=== PATIENT | male | born 1950 | race Caucasian/White ===

== ENCOUNTER 2024-08-21 12:06 | Inpatient (IN) | payer OTHER, MEDICARE ==
[~2024-08-21] VITALS: Ht 170.2 cm; Wt 76.5 kg
[2024-08-21] MEDS ORDERED: Metoprolol Tartrate 1 MG/ML 5 ML VIAL IV PRN (12:40)
[2024-08-21 12:56] LABS: BASOPHILS ABSOLUTE AUTO 0.03 K/mm3 (0.00-0.23); BASOPHILS PERCENT AUTO 0 % (0-2); EOSINOPHILS ABSOLUTE AUTO 0.03 K/mm3 (0.00-0.68); EOSINOPHILS PERCENT AUTO 0 % (0-6); Hematocrit 36.3 % (33.0-53.0); Hemoglobin 11.4 g/dL (11.5-17.5); IMMATURE GRAN ABSOLUTE AUTO 0.04 K/mm3 (0.00-0.10); IMMATURE GRAN PERCENT AUTO 1 % (0-1); LYMPHOCYTES ABSOLUTE AUTO 2.09 K/mm3 (0.84-5.20); LYMPHOCYTES PERCENT AUTO 25 % (21-46); MONOCYTES ABSOLUTE AUTO 0.76 K/mm3 (0.16-1.47); MONOCYTES PERCENT AUTO 9 % (4-13); Mean Corpuscular HGB 28.6 pg (26.0-34.0); Mean Corpuscular HGB Conc 31.4 g/dL (31.5-36.5); Mean Corpuscular Volume 91 fL (80-100); Mean Platelet Volume 9.2 fL (9.1-12.4); NEUTROPHILS ABSOLUTE AUTO 5.58 K/mm3 (1.96-9.15); NEUTROPHILS PERCENT AUTO 65 % (41-73); Platelet Count 426 K/mm3 (150-400); RDW Coefficient Variation 14.6 % (11.7-14.2); RDW Standard Deviation 49.1 fL (35.1-46.3); Red Blood Cell Count 3.98 M/mm3 (3.80-5.90); White Blood Cell Count 8.53 K/mm3 (4.00-11.30)
[2024-08-21 13:05] LABS: Base Excess Venous 7.2 mmol/L; Bicarbonate Venous 29.4 mmol/L (24.0-30.0); PCO2 Venous 52.8 mmHg (38-42); pH Blood Venous 7.39 (7.34-7.37)
[2024-08-21 13:29] LABS: Albumin/Globulin Ratio 0.4 (0.8-1.8); Bilirubin, Total 0.4 mg/dL (0.1-1.0); Bun/Creatinine Ratio 14.9 (12.0-20.0); Calcium, Blood 8.6 mg/dL (8.5-10.1); Creatinine, Blood 0.67 mg/dL (0.60-1.20); Globulin, Blood 5.2 g/dL (2.2-4.0); Potassium, Blood 4.7 mmol/L (3.5-5.5); Total Protein, Blood 7.2 g/dL (6.4-8.2)
[2024-08-21] MEDS ORDERED: LOSARTAN POTASS25 M2 PO (13:36)
[2024-08-21] MEDS ORDERED: METF500 PO (13:37)
[2024-08-21] MEDS ORDERED: METO50ER PO (13:37)
[2024-08-21] MEDS ORDERED: XARELTO20 M1 PO (13:38)
[2024-08-21] MEDS ORDERED: TAMSULOSIN HCL0.4 M1 PO (13:38)
[2024-08-21] MEDS ORDERED: Crestor40 MG PO (13:38)
[2024-08-21] MEDS ORDERED: FUROSEMIDE40 MG PO (13:39)
[2024-08-21] MEDS ORDERED: FINA5 PO (13:39)
[2024-08-21] MEDS ORDERED: DAPAGLIFLOZIN5 MG PO (13:39)
[2024-08-21] MEDS ORDERED: BASAGLAR K100 UNIT/1 SC (13:40)
[2024-08-21] MEDS ORDERED: GUAI600T33 PO (13:40)
[2024-08-21] MEDS ORDERED: Diltiazem HCl 5 MG / ML 5ML Vial IV ONE (14:05)
[2024-08-21] MEDS ORDERED: FLU VACC TS2024-25(6MOS UP)/PF 45 MCG/0.5 ML SYRINGE IM SCH (15:30)
[2024-08-21] MEDS ORDERED: Azithromycin 500 MG in NS 250 ML IV SCH (16:00)
[2024-08-21] MEDS ORDERED: CefTRIAXone Sodium 1,000 MG in NS 100 ML IV SCH (16:00)
[2024-08-21] MEDS ORDERED: Insulin Regular 100 UNIT/ML 10ML Vial SC SCH (16:30)
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
[2024-08-21 16:59] VITALS: BP 122/75
[2024-08-21 17:23] VITALS: BP 135/78
[2024-08-21 17:35] VITALS: BP 143/91
[2024-08-21] MEDS ORDERED: Furosemide 10 MG / ML 2ML Vial IV SCH (18:00)
[2024-08-21] MEDS ORDERED: Enoxaparin 80 MG/0.8 ML SYR SC SCH (18:00)
[2024-08-21 20:13] VITALS: BP 108/77
[2024-08-21] MEDS ORDERED: Metoprolol Succinate 50 MG TABCR PO SCH (21:00)
[2024-08-21] MEDS ORDERED: Insulin Human Lispro 100 Units/ML 3ML Syringe SC SCH (21:00)
[2024-08-21] MEDS ORDERED: Insulin Glargine-Yfgn 100 Unit/mL 3 ML SYR SC SCH (21:00)
[2024-08-21] MEDS ORDERED: GuaiFENesin 600 MG TabCR PO SCH (21:00)
[2024-08-21] MEDS ORDERED: Lactobacil 2-S.Thermo-Bifido 1 1 Cap PO SCH (21:00)
[2024-08-21 22:02] VITALS: BP 115/84
[2024-08-21 23:00] VITALS: BP 121/66
[2024-08-22] VITALS (11 sets, daily range): BP systolic 117–138; BP diastolic 68–104
[2024-08-22 04:29] LABS: BASOPHILS ABSOLUTE AUTO 0.03 K/mm3 (0.00-0.23); BASOPHILS PERCENT AUTO 0 % (0-2); EOSINOPHILS ABSOLUTE AUTO 0.09 K/mm3 (0.00-0.68); EOSINOPHILS PERCENT AUTO 1 % (0-6); Hematocrit 35.6 % (37.0-53.0); Hemoglobin 11.3 g/dL (13.5-17.5); IMMATURE GRAN ABSOLUTE AUTO 0.02 K/mm3 (0.00-0.10); IMMATURE GRAN PERCENT AUTO 0 % (0-1); LYMPHOCYTES ABSOLUTE AUTO 2.11 K/mm3 (0.84-5.20); LYMPHOCYTES PERCENT AUTO 25 % (21-46); MONOCYTES PERCENT AUTO 10 % (4-13); Mean Corpuscular HGB 28.4 pg (26.0-34.0); Mean Corpuscular HGB Conc 31.7 g/dL (31.5-36.5); Mean Corpuscular Volume 89 fL (80-100); Mean Platelet Volume 8.9 fL (9.1-12.4); NEUTROPHILS ABSOLUTE AUTO 5.39 K/mm3 (1.96-9.15); NEUTROPHILS PERCENT AUTO 64 % (41-73); Platelet Count 432 K/mm3 (150-400); RDW Coefficient Variation 14.6 % (11.7-14.2); RDW Standard Deviation 47.6 fL (35.1-46.3); Red Blood Cell Count 3.98 M/mm3 (4.30-5.90); White Blood Cell Count 8.44 K/mm3 (4.00-11.30)
[2024-08-22 04:50] LABS: Albumin/Globulin Ratio 0.4 (0.8-1.8); Bilirubin, Total 0.3 mg/dL (0.1-1.0); Bun/Creatinine Ratio 15.3 (12.0-20.0); Calcium, Blood 8.7 mg/dL (8.5-10.1); Creatinine, Blood 0.59 mg/dL (0.60-1.20); Globulin, Blood 5.2 g/dL (2.2-4.0); Total Protein, Blood 7.2 g/dL (6.4-8.2)
--- NOTE | 2024-08-22 05:16 | NUR ---
SHIFT SUMMARY THIS RN ASSUMED CARE OF PATIENT AT 1900. PT A&O X4. ABLE TO MAKE NEEDS KNOWN. GETTING TO BSC WITH SBA/IND TO VOID. PT NEEDING 2-4L VIA NC TO MAINTAIN SPO2. ENCOURAGING DEEP BREATHING AND COUGHING. WET/COARSE LS T/O. BP STABLE. CONTINUES TO BE ON CARDIZEM GTT. TITRATING PRN. CURRENTLY AT 10MG/HR. AFIB WITH HR AVERAGING 100'S CURRENTLY. DENIES CHEST PAIN/PRESSURE. REPORTS PAIN IN BLE. NOTED TO BE RED AND SWOLLEN. AFEBRILE. THIS RN SPOKE TO PATIENT REGARDING HOME SITUATION AND DEMENTED . CARE MANAGEMENT CONSULT PLACED. BED IN LOWEST POSITION AND CALL LIGHT WITHIN REACH. THIS RN WILL REPORT TO ONCOMING DAYSHIFT RN.
--- NOTE | 2024-08-22 11:53 | NUR ---
Spiritual care visit conducted. Patient is sitting on a chair and alert. He tells me about the poor conditions of his heart and lungs and his goal to see what an oncologist could do for his cancer if anything. He tells me about his souse at home who has dementia and the lack of support from any other family or friends. He shares his possible interest in making a commitment to God and being baptized but when questioned further he stated that he would think some more about those ambrose issues. 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 He welcomed prayer and showed signs of being encouraged by both the conversation and the prayer. I will continue to remain available to patient and family.
--- NOTE | 2024-08-22 12:33 | NUR ---
Dr Hicks rounding on the patient at this time.
[2024-08-22] MEDS ORDERED: Metoprolol Tartrate 25 MG Tab PO PRN (12:35)
--- NOTE | 2024-08-22 13:21 | NUR ---
Pt states that he is having thoughts of harming himself, and that he has had attempts recently just after having the cancer diagnosis, but he does not want to say how the attempts were made.
[2024-08-22] MEDS ORDERED: Gabapentin 100 MG Cap PO SCH (14:00)
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
--- NOTE | 2024-08-22 15:44 | NUR ---
Call to Dr. Hicks re oncology consultation. Received orders for imaging, to be done before consultation is requested. Pt worked with physical therpist Geoff, and has had significant coughing spells, tripoding in the bed and heart rate remaining 115-129 bpm atrial fibrillation. This information relayed to the attending MD in a following conversation.
--- NOTE | 2024-08-22 16:22 | NUR ---
"Spiritual Care Consult | ordered by Dr. Hicks In [facility] this visit could been better addressed at a different time, but the Pt. welcomed my visit at first. Facilitated a life review and began to establish rapport, when the Pts. nurses came in to move the Pt. to a different room. Once the Pt. got settled in his new room, the Pts. demeanor seems to have changed. Resumed a life review but the Pts. responses displayed evidence of being annoyed and distracted. This gas technician offered to return in the morning, and the Pt. agreed that would be best and verbalized gratitude for the spiritual care visit."
--- NOTE | 2024-08-22 18:15 | NUR ---
Pt back from CT, ongoing increased work of breathing and heart rate 130-140s, steadily both worsening this afternoon. Audible coarse breathing with RR 24/min. 4 L/min of oxygen, spo2 90-92%. Pt is needing to sit up in order to breathe comfortably. Cardizem gtt restarted, per orders. IV lasix given per scheduled order.
--- NOTE | 2024-08-22 18:35 | NUR ---
SHIFT SUMMARY NEURO: PT REMAINED A/OX4 CARDIAC: ISSUES WITH HR T/O THE DAY, HR SUSTAINING 120'S-140'S, DR NOTIFIED, SEE NEW ORDERS TO RESUME DILTIAZEM DRIP. EDEMA IN BLE INCREASED SLIGHTLY FROM YESTERDAY. RESPIRATORY: WOB OF BREATHING INCREASED T/O DAY, LUNG SOUNDS MORE COARSE THAN YESTERDAY. PT ORTHOPNIC AND HAD DIFFICULTY LAYING FLAT FOR CT TODAY. SATS DROPPING INTO HIGH 80'S. CURRENTLY ON 4L NC. PLAN IS FOR THORACENTESIS TOMORROW. PSYCHSOC: PT REPORTED SUICIDAL IDEATION TODAY. DOES NOT CURRENTLY HAVE A PLAN TO CARRY OUT, BUT HAS MADE PLANS IN THE PAST AND MADE MULTIPLE ATTEMPTS IN THE PAST. SUGGESTED THAT HE INTENDS TO MAKE A PLAN SOON HE LEAVES THE HOSPITAL. PRECAUTIONS IN PLACE, PT MOVED TO [facility], SITTER IN PLACE WITH PT.
--- NOTE | 2024-08-22 19:45 | NUR ---
SI IDEATION PT STATES HE STILL FEELS SI BUT NOT HERE IN THE HOSPITAL. PT STATES HE DIDNT WANT TO BE ASKED ANY MORE QUESTIONS LONG TERM THROUGH THE ASSESSMENT.
[2024-08-22] MEDS ORDERED: Melatonin 5 MG Tablet PO PRN (21:05)
[2024-08-23] VITALS: BP 114/72
[2024-08-23 04:32] VITALS: BP 120/90
[2024-08-23 04:33] LABS: BASOPHILS ABSOLUTE AUTO 0.03 K/mm3 (0.00-0.23); BASOPHILS PERCENT AUTO 0 % (0-2); EOSINOPHILS ABSOLUTE AUTO 0.09 K/mm3 (0.00-0.68); EOSINOPHILS PERCENT AUTO 1 % (0-6); Hemoglobin 11.8 g/dL (13.5-17.5); IMMATURE GRAN ABSOLUTE AUTO 0.04 K/mm3 (0.00-0.10); IMMATURE GRAN PERCENT AUTO 0 % (0-1); LYMPHOCYTES ABSOLUTE AUTO 2.23 K/mm3 (0.84-5.20); LYMPHOCYTES PERCENT AUTO 23 % (21-46); MONOCYTES ABSOLUTE AUTO 0.83 K/mm3 (0.16-1.47); MONOCYTES PERCENT AUTO 8 % (4-13); Mean Corpuscular HGB 28.9 pg (26.0-34.0); Mean Corpuscular HGB Conc 31.9 g/dL (31.5-36.5); Mean Corpuscular Volume 91 fL (80-100); NEUTROPHILS ABSOLUTE AUTO 6.66 K/mm3 (1.96-9.15); NEUTROPHILS PERCENT AUTO 67 % (41-73); Platelet Count 419 K/mm3 (150-400); RDW Coefficient Variation 14.4 % (11.7-14.2); RDW Standard Deviation 47.7 fL (35.1-46.3); Red Blood Cell Count 4.09 M/mm3 (4.30-5.90); White Blood Cell Count 9.88 K/mm3 (4.00-11.30)
[2024-08-23 04:49] LABS: International Normalized Ratio 1.02; Prothrombin Time Results 10.9 Sec (9.7-11.5)
[2024-08-23 04:53] LABS: Albumin, Blood 1.9 g/dL (3.4-5.0); Albumin/Globulin Ratio 0.3 (0.8-1.8); Bilirubin, Total 0.3 mg/dL (0.1-1.0); Bun/Creatinine Ratio 18.3 (12.0-20.0); Creatinine, Blood 0.49 mg/dL (0.60-1.20); Globulin, Blood 5.5 g/dL (2.2-4.0); Potassium, Blood 3.9 mmol/L (3.5-5.5); Total Protein, Blood 7.4 g/dL (6.4-8.2)
--- NOTE | 2024-08-23 05:20 | NUR ---
SHIFT SUMMARY ASSUMED CARE OF PT AT 1900. PT IS A/OX4. HEART SOUNDS TACHY AND IRREGULAR. PT REMAINED ON DILT GTT T/O THE NOC TITRATED FROM 15 T0 5. TOLERATING WELL. PT REPORTS STILL FEELING SI IDEATION BUT HAS NO PLANS TO ACT ON IT. FACESHEET SENT TO ER FOR CONSULT. PT WAS A 1P SBA TO BATHROOM. PT SATURATIONS WERE 89-94% ON 7-9L NC. PT STATES SOB BETTER BUT ALSO THE SAME. PT EAGER TO GET THORCENTESIS TODAY.
--- NOTE | 2024-08-23 07:16 | NUR ---
Bedside report from TREMAYNE Shine. The pt is awake, sitting up in bed in tripod position, tachypneic and mildly dyspneic on 7 l/min of O2. States that he wants food. CBG 49; given orange juice and chocolate pudding at this time. Cardizem gtt infusing at 5 cc/hour, heart rate 112-120 bpm at rest. Jake Mitchell is in the room.
[2024-08-23 07:34] VITALS: BP 132/110
[2024-08-23] MEDS ORDERED: Protein Supplement 30 ML UD PO SCH (09:00)
[2024-08-23 09:40] VITALS: BP 138/109
--- NOTE | 2024-08-23 09:45 | NUR ---
0835 Pt down to imaging for thoracentesis and chest xray. 1.5 l fluid drained from the right thorax, pt tolerated it very well. He is requiring slightly less oxygen, 4 l/min at rest and states that he feels better. Audible rhonchi with breathing is decreased. Up to BSC after returning to the room. Psychiatrist Dr. Johnson came to the unit but did not see the patient; states that Dr. Katz will come and see the patient, unknown at what time. Heart rate continues to be 112-125 bpm, atrial fibrillation with cardizem gtt at 5 mg/hour.
[2024-08-23] MEDS ORDERED: Potassium Phosphate Dibasic 15 MM in Dextrose 5% 250 ML IV STA (10:45)
[2024-08-23] MEDS ORDERED: Digoxin 0.25 MG/ML 2ML Amp IV SCH (11:00)
[2024-08-23] MEDS ORDERED: Metoprolol Succinate 50 MG TABCR PO ONE (11:00)
[2024-08-23 12:30] VITALS: BP 120/62
[2024-08-23] MEDS ORDERED: QUEtiapine Fumarate 25 MG Tab PO PRN (15:40)
--- NOTE | 2024-08-23 17:05 | NUR ---
Pt. is awake and sitting up in his bed. 1:1 sittter is present. Pt. welcomes my visit. Facilitated an update of the plan of care. With theraputic listening assessed Pts. desire to want to see if the treatments would work. The Pt. displayed evidence of a more hopeful outcome than at our visit the previous day. Pryaed with the pt. Pt. verbalized gratitude for bothe the prayer and spiritual care visits. Pt. verbalized that he welcomes wet cleaner machine visits if he is still here on Monday.
--- NOTE | 2024-08-23 18:05 | NUR ---
SHIFT SUMMARY NEURO: A/OX4 T/O SHIFT. OBEYS COMMANDS, MAKES NEEDS KNOWN. PT HAD AN OUTBURST TODAY DUE TO BECOMING TOO WARM. HE WAS YELLING, CURSING, AND THROWING BLANKETS OFF. MULTIPLE STAFF ASSISTED IN REMOVING GOWN AND BLANKETS, COLD COMPRESS APPLIED TO FOREHEAD. PT EXPRESSED REGRET AND APOLOGIES, NERVOUS HE WAS IN TROUBLE. PT ALSO HAD AN EPISODE WHILE SLEEPING THIS AFTERNOON IN WHICH HE BEGAN TO SHAKE T/O, MUTTER UNCOMPREHENSIBLY. HE WAS DIFFICULT TO WAKE, BUT SAID HE HAD BEEN DREAMING OF DROWNING. PT STATES HE HAS NIGHTMARES AND WILL SOMETIMES SCREAM OUT. PSYCH: PT SEEN MY DR MOORE TODAY, SEE NOTE. 1:1 SITTER T/O SHIFT. CARDIO: BP STABLE, TACHYCARDIAC T/O SHIFT. SEE NEW MED ORDERS. RESPIRATORY: RR 20-28, O2 SATS HIGH 80'S TO HIGH 90'S. CURRENTLY ON 7L NC. LUNG SOUNDS VERY COURSE, WHEEZY. PT HAD THORACENTESIS TODAY, 1L OF FLUID REMOVED. PT TOLERATED PROCEDURE WELL. INTEGUMENTARY: BLE REMAINED UNCHANGED FROM YESTERDAY.
--- NOTE | 2024-08-23 18:36 | NUR ---
SEE ASSESSMENT AND PSYCH CONSULT NOTES
[2024-08-23 20:00] VITALS: BP 125/86
--- NOTE | 2024-08-23 20:26 | NUR ---
PT LAYING IN BED W/ HOB ELEVATED. ORTHOPNEA NOTED. RESPIRATORY SOUNDS IRREGULAR. DENIES PAIN AT PRESENT. SITTER AT BEDSIDE. O2 4L NC[address] ST ON MONITOR. DENIES CP. NON-PRODUCTIVE COUGH. REFUSED MUCINEX.
[2024-08-23] MEDS ORDERED: Metoprolol Succinate 50 MG TABCR PO SCH (21:00)
[2024-08-23] MEDS ORDERED: QUEtiapine Fumarate 50 MG TAB PO SCH (21:00)
[2024-08-24 00:52] VITALS: BP 116/72
[2024-08-24 04:13] VITALS: BP 118/77
--- NOTE | 2024-08-24 05:19 | NUR ---
PT A/O x4 W/ INTERMITTENT CONFUSION & AGITATION NOTED. WHEN O2 REMOVED, PT DESATS IMMEDIATELY. SR T/O SHIFT. DENIES PAIN. SITTING UP IN BED AT PRESENT, ALERT, CONVERSING W/ SITTER. EATING TURKEY SANDWICH, CHEDDAR CHEESE AND A GLASS OF WATER.
[2024-08-24 07:09] LABS: BASOPHILS ABSOLUTE AUTO 0.03 K/mm3 (0.00-0.23); BASOPHILS PERCENT AUTO 0 % (0-2); EOSINOPHILS PERCENT AUTO 1 % (0-6); Hematocrit 36.6 % (37.0-53.0); Hemoglobin 11.4 g/dL (13.5-17.5); IMMATURE GRAN ABSOLUTE AUTO 0.02 K/mm3 (0.00-0.10); IMMATURE GRAN PERCENT AUTO 0 % (0-1); LYMPHOCYTES ABSOLUTE AUTO 1.79 K/mm3 (0.84-5.20); LYMPHOCYTES PERCENT AUTO 20 % (21-46); MONOCYTES ABSOLUTE AUTO 0.75 K/mm3 (0.16-1.47); MONOCYTES PERCENT AUTO 8 % (4-13); Mean Corpuscular HGB 28.5 pg (26.0-34.0); Mean Corpuscular HGB Conc 31.1 g/dL (31.5-36.5); Mean Corpuscular Volume 92 fL (80-100); Mean Platelet Volume 8.9 fL (9.1-12.4); NEUTROPHILS ABSOLUTE AUTO 6.45 K/mm3 (1.96-9.15); NEUTROPHILS PERCENT AUTO 71 % (41-73); Platelet Count 364 K/mm3 (150-400); RDW Coefficient Variation 14.6 % (11.7-14.2); RDW Standard Deviation 49.3 fL (35.1-46.3); White Blood Cell Count 9.14 K/mm3 (4.00-11.30)
[2024-08-24 07:31] LABS: Bun/Creatinine Ratio 17.8 (12.0-20.0); Creatinine, Blood 0.62 mg/dL (0.60-1.20); Potassium, Blood 4.2 mmol/L (3.5-5.5)
[2024-08-24 08:01] VITALS: BP 138/85
[2024-08-24] MEDS ORDERED: Atropine Sulfate 1% Opth Soln 2ML BTL MM PRN (12:45)
[2024-08-24] MEDS ORDERED: Morphine Sulfate 20 MG/1ML 1 ML Oral Syringe PO PRN (12:45)
[2024-08-24] MEDS ORDERED: Furosemide 10 MG / ML 2ML Vial IV ONE (12:55)
[2024-08-24] MEDS ORDERED: Cefepime HCl 2,000 MG in NS 100 ML IV SCH (13:00)
[2024-08-24 13:12] VITALS: BP 149/91
[2024-08-24 16:39] VITALS: BP 137/67
--- NOTE | 2024-08-24 17:25 | NUR ---
SHIFT SUMMARY PT A/OX4, COOPERATIVE OF MOST CARE. PT INFORMED THIS RN THAT HE STILL BELIEVED THAT HE WOULD HARM HIMSELF IF HE WERE TO BE SENT HOME. PT BECOMES EASILY AGITATED WITH STAFF IF ASKED ABOUT HIS MENTATION AND THOUGHTS. PT VERY PARTICULAR ABOUT HIS CARE. PT O2 SATS REMAINED IN THE 90'S ON 4L NC. PT DENIES SOB BUT WOB IS LABORED. OTHE VSS THROUGHOUT SHIFT. NO REPORT OF CHEST PAIN/PRESSURE AT THIS TIME. PT HAD A SLIGHT FEVER DURING SHIFT. BANSAL PLACED FOR ACUTE RETENTION PER MD VERBAL ORDER.
[2024-08-24] MEDS ORDERED: Furosemide 10 MG/ML 4ML Vial IV SCH (18:00)
--- NOTE | 2024-08-24 19:30 | NUR ---
PT A/O x4. COMPLIANT W/ POC AT THE MOMENT. DENIES PAIN OF ANY SORT. RESPIRATORY DISTRESS NOTED ON EXERTION. BANSAL DRAINING. AFIB REMAINS W/ NO SYMPTOMS.
[2024-08-24 20:40] VITALS: BP 156/75
[2024-08-24] MEDS ORDERED: Metoprolol Succinate 50 MG TABCR PO SCH (21:00)
--- NOTE | 2024-08-25 06:58 | NUR ---
AFTER MEDICATING PT W/ PRN ROXANOL FOR TACHYPNEA/ORTHOPNEA, PT SLEPT COMFORTABLY T/O SHIFT. REFUSED IV ATB BOTH DOSES. REFUSED MUCINEX, LACTOBACILLUS & GABAPENTIN. ROLF REMAINS PATENT.
[2024-08-25 08:09] VITALS: BP 124/81
[2024-08-25] MEDS ORDERED: Digoxin 0.25 MG Tab PO SCH (09:00)
[2024-08-25 11:58] VITALS: BP 109/71
[2024-08-25 16:33] VITALS: BP 110/69
--- NOTE | 2024-08-25 18:04 | NUR ---
SHIFT SUMMARY PT IS A&O X4, ABLE TO MAKE NEEDS KNOWN, OBEYS COMMANDS, MOVES ALL EXTREMITIES, SOME WEAKNESS TO BLE, PT WAS ABLE TO STAND AT BEDSIDE DURING BEDBATH WITH SLIP BOX CHANGER AND FWW. PT REPORTING SI SAYING HE CANT CARE FOR HIMSELF AT HOME AND WILL "JUST LAY THERE AND AT START OF THE SHIFT, DIFFICULTY ATTAINING FOOD, POOR LIVING CONDITIONS, NO PHONE OR INTERNET SERVICE, NOT BEING COMPLAINT WITH MEDICATIONS DUE TO LACK OF FOOD THEY CANNOT TAKE THEIR MEDICATIONS WITHOUT FOOD BECAUSE IT WILL MESS UP MY STOMACH , PT ALSO REPORTS THAT THE HOUSE IS HIS AND THAT HE HAS TIRED TO TALK TO HER ABOUT SELLING IT SO THAT THEY CAN MOVE CLOSER INTO TOWN FOR MEDICAL HELP BUT SHE REFUSES HE THEN ASKED THIS RN WHAT CAN MARY OTHER THAN BEAT HER DOWN AND MAKE HER SELL IT , PT HAS LABILE MOOD WITH TIMES OF INCREASED IRRITATION/ ANGER/ DEFENSIVENESS AND TIMES OF PLEASANTNESS/GRATITUDE, PT ALSO REPORTED HAVING TWO CHILDREN IN THE AREA WHO ARE THEIFS AND DRUG ADDICS AND ANOTHER CHILD WHO LIVES OUT OF STATE. LUNGS SOUND COARSE T/O WITH DIMINISHED BASES,CONTINUOUS SPO2 MONITROPING, SPO2 GREATER THAN 90% ON 4L O2 VIA NC, PT HAS CONGESTED COUGH THAT OCCAONIALLY IS PRODUCTIVE WITH THICK CARR SPUTUM. HR 90-110 S, DENIES CHEST P/P T/O THIS SHIFT, RHYTHM AFIB, CARDIZEM DRIP STARTED THIS SHIFT CURRENT RATE IS 5MG/HR. BANSAL CATH IS SECURE/PATENT/DRAINING TO GRAVITY. PT ON REGULAR DIET/CBG ELEVATED REQUIRING INSULIN COVERAGE/ DR. MATHEWS AWARE. PT REFUSED TO TAKE GUAIFNESIN AND PRODIOTIC THIS AM BECAUSE THE GUAIFNESIN "DOESN'T DO SHIT AND THE PROBITOIC WAS TO BIG TO SWALLOW . PT EDUCATED ON MEDICATIONS. CALLED DR. MATHEWS THIS AM TO GET CLERIFICATIONS OF CARDIZEM AND [employer] HR, DR. MATHEWS WOULD LIKE PT TO BE SUSTAINING HR OF 90 S BEFORE TURNING OFF INFUSION.
[2024-08-25] MEDS ORDERED: Insulin Glargine-Yfgn 100 Unit/mL 3 ML SYR SC SCH (21:00)
[2024-08-25 23:03] VITALS: BP 97/52
[2024-08-26 04:11] VITALS: BP 101/58
[2024-08-26 04:25] LABS: BASOPHILS ABSOLUTE AUTO 0.04 K/mm3 (0.00-0.23); BASOPHILS PERCENT AUTO 1 % (0-2); EOSINOPHILS ABSOLUTE AUTO 0.24 K/mm3 (0.00-0.68); EOSINOPHILS PERCENT AUTO 3 % (0-6); Hematocrit 35.1 % (37.0-53.0); IMMATURE GRAN ABSOLUTE AUTO 0.02 K/mm3 (0.00-0.10); IMMATURE GRAN PERCENT AUTO 0 % (0-1); LYMPHOCYTES ABSOLUTE AUTO 1.99 K/mm3 (0.84-5.20); LYMPHOCYTES PERCENT AUTO 23 % (21-46); MONOCYTES ABSOLUTE AUTO 0.71 K/mm3 (0.16-1.47); MONOCYTES PERCENT AUTO 8 % (4-13); Mean Corpuscular HGB 28.5 pg (26.0-34.0); Mean Corpuscular HGB Conc 31.3 g/dL (31.5-36.5); Mean Corpuscular Volume 91 fL (80-100); Mean Platelet Volume 9.2 fL (9.1-12.4); NEUTROPHILS PERCENT AUTO 65 % (41-73); Platelet Count 383 K/mm3 (150-400); RDW Coefficient Variation 14.7 % (11.7-14.2); RDW Standard Deviation 49.4 fL (35.1-46.3); Red Blood Cell Count 3.86 M/mm3 (4.30-5.90)
[2024-08-26 04:51] LABS: Bun/Creatinine Ratio 33.4 (12.0-20.0); Calcium, Blood 8.7 mg/dL (8.5-10.1); Creatinine, Blood 0.6 mg/dL (0.60-1.20); Potassium, Blood 3.9 mmol/L (3.5-5.5)
--- NOTE | 2024-08-26 06:02 | NUR ---
EOS: PATIENT WITH NO ACUTE CHANGES THROUGH THE SHIFT. SLEPT WELL. ABLE TO MAKE NEEDS KNOWN, DENIES CHEST PAIN PRESSURE OR SOB. VSS SR TELE IN PLACE. REPOSITIONED REQUESTED, REFUSED Q2. RECOMMEND INCREASED MOVEMENT OT RECLINER WITH MEALS. NO ACUTE CONCERNS. SPO2 >94% ON RA.
--- NOTE | 2024-08-26 06:06 | NUR ---
EOS: PATIENT HAD SOME MINOR CONFUSION UPON WAKING A COUPLE TIMES THOUGH THE NIGHT, ENDORSED "HE FEELS LIKE HE WAS SLIPPED DRUGS." EASILY REORIENTED AND CLEARED. SITTER IN THE ROM NO INTENTIONS OR PLANS OF SI. HR 90-110 AFIB. PATIENT DENIES CHETS PAIN PRESURE OR SOB. CATH CARE PROVIDED. REPOSITION REQUESTED. A/O X 3-4 ONCE CLEARED. VSS. OFF THE DILT AT ~ 2145. NO ACUTE CONCERNS. DIURESED THORUGH THE NIGHT. SPO2 93% ON ~3-3.5L NC. PATIENT MOSTLY COOPERATIVE WITH CARE FOR THIS RN.
[2024-08-26 07:48] VITALS: BP 120/80
[2024-08-26 11:42] VITALS: BP 113/86
[2024-08-26 16:04] VITALS: BP 142/78
--- NOTE | 2024-08-26 17:58 | NUR ---
SHIFT SUMMARY; ASSUMED CARE AT 0700. A/A/OX4 T/O SHIFT. 1;1 SITTER WITH PT FOR SI. PT DENIES CURRENT SI AT THIS TIME. 3L 02 INCREASED TO 5L NC TO MAINTAIN SATS OF 94%. REMAINS DIFFICULT TO PROVIDE CARE FOR, ARGUES ABOUT MEDICATIONS, REFUSES PT, MAKES DEMANDS, YELLS AT TIMES. ASKED MULTIPLE TIMES TO BE RESPECTFUL TO STAFF. CALL THIS RN THE "JOSEYEN". REPORTS NOT WANTING TO GO HOME TO [place], STATES WILL GO TO [facility] UPON DISCHARGE. HR INCREASED T/O SHIFT TO 120 IN EVENING. MEDICATED WITH PRN METOPROLOL PER EMAR. AGREES IN EVENING TO WORK WITH OT, WALKS WITH WALKER TO BATHROOM WITH SLOW STEADY GAIT. REFUSES PM DOSE OF LASIX AND STATES WILL NOT TAKING ANY MORE ANTIBIOTICS. WILL CONTINUE TO MONITOR AND TREAT UNTIL CHANGE OF SHIFT.
[2024-08-26 20:32] VITALS: BP 130/71
[2024-08-26 23:16] VITALS: BP 107/71
[2024-08-27 04:20] LABS: BASOPHILS ABSOLUTE AUTO 0.04 K/mm3 (0.00-0.23); BASOPHILS PERCENT AUTO 1 % (0-2); EOSINOPHILS ABSOLUTE AUTO 0.23 K/mm3 (0.00-0.68); EOSINOPHILS PERCENT AUTO 3 % (0-6); Hematocrit 35.7 % (37.0-53.0); IMMATURE GRAN ABSOLUTE AUTO 0.02 K/mm3 (0.00-0.10); IMMATURE GRAN PERCENT AUTO 0 % (0-1); LYMPHOCYTES ABSOLUTE AUTO 1.82 K/mm3 (0.84-5.20); LYMPHOCYTES PERCENT AUTO 23 % (21-46); MONOCYTES ABSOLUTE AUTO 0.73 K/mm3 (0.16-1.47); MONOCYTES PERCENT AUTO 9 % (4-13); Mean Corpuscular HGB 28.1 pg (26.0-34.0); Mean Corpuscular HGB Conc 30.8 g/dL (31.5-36.5); Mean Corpuscular Volume 91 fL (80-100); Mean Platelet Volume 9.1 fL (9.1-12.4); NEUTROPHILS ABSOLUTE AUTO 4.98 K/mm3 (1.96-9.15); NEUTROPHILS PERCENT AUTO 64 % (41-73); Platelet Count 362 K/mm3 (150-400); RDW Coefficient Variation 14.6 % (11.7-14.2); RDW Standard Deviation 48.6 fL (35.1-46.3); Red Blood Cell Count 3.91 M/mm3 (4.30-5.90); White Blood Cell Count 7.82 K/mm3 (4.00-11.30)
[2024-08-27 04:39] LABS: Albumin, Blood 1.4 g/dL (3.4-5.0); Albumin/Globulin Ratio 0.3 (0.8-1.8); Bilirubin, Total 0.4 mg/dL (0.1-1.0); Bun/Creatinine Ratio 23.5 (12.0-20.0); Calcium, Blood 8.5 mg/dL (8.5-10.1); Creatinine, Blood 0.55 mg/dL (0.60-1.20); Globulin, Blood 5.1 g/dL (2.2-4.0); Magnesium, Blood 2.1 mg/dL (1.6-2.4); Potassium, Blood 3.6 mmol/L (3.5-5.5); Total Protein, Blood 6.5 g/dL (6.4-8.2)
[2024-08-27 04:48] VITALS: BP 103/56
--- NOTE | 2024-08-27 05:51 | NUR ---
EOS: NO ACUTE EVENTS OXY DEMAND IMPROVED AFTER DOSING OF LASIX, IMPROVED THROUGH THE NIGHT. NO SIGNIFICANT CHANGES. SPO2 >94% ON 4L VIA OXY MASK. STILL AFIB, SPOKE WITH RESIDENT ABOUT NO ANTICOAG, PATIENT REFUSED LOVENOX DURING THIS ADMISSION. WILL PASS ON TO DAY RN. DENIES CHEST PAIN PRESSURE OR SOB AT REST. NO ACUTE CONCERNS SITTER STILL IN THE ROOM, BM THIS SHIFT YESTERDAY. REFUSED NEW IV ROTATION PLACEMENT.
[2024-08-27 08:00] VITALS: BP 126/80
[2024-08-27] MEDS ORDERED: Methocarbamol 500 MG Tab PO PRN (09:00)
[2024-08-27] MEDS ORDERED: Potassium Chloride 20 MEQ TabCR PO SCH (10:00)
[2024-08-27] MEDS ORDERED: Aspirin 81 MG Chew PO SCH (10:20)
[2024-08-27 10:46] VITALS: BP 141/75
[2024-08-27] MEDS ORDERED: Prochlorperazine Edisylate 10 mg Vial IV PRN (14:20)
[2024-08-27] MEDS ORDERED: Azithromycin 250 MG Tab PO SCH (16:00)
[2024-08-27 16:02] VITALS: BP 110/85
--- NOTE | 2024-08-27 16:46 | NUR ---
TRANSFER OF CARE PT IS A&O X4, ABLE TO MAKE NEEDS KNOWN, OBEYS COMMANDS, MOVES ALL EXTREMITIES, SOME WEAKNESS TO BLE, PT WAS ABLE TO SELF TRANSFER TO BSC WITH ASSISTANCE WITH CORDS AND LINE, PT ALSO ABLE TO ROLL SELF IN BED. PT DENIES THOUGHTS/FEELINGS OF HARMING SELF/OTHERS THIS AM, PT IRRITABLE ABOUT MEDICATIONS BEING GIVEN WITH BREAKFAST/EDUCATED PT THAT ON MONDAY THEY REPORTED THAT THEY HAD TO TAKE THEIR MEDICATIONS WITH MEALS BECUASE WHEN HE TAKES THEM WITHOUT HE REPORTS THEY MESS UP MY STOMACH / PT CONTINUES TO EXPRESS DISPLEASURE AND THAT HE WILL TALK ABOUT THE TIME HE WANTS TO TAKE HIS MORNING MEDS WITH THE DOCTOR AND THEN TOOK HIS MORNING MEDICATIONS BUT REFUSED THE GUAFINISEN. LUNGS SOUND COARSE CREACKLES T/O WITH DIMINISHED BASES AND WHEEZING T/O ,CONTINUOUS SPO2 MONITORING, AT START OF THIS SHIFT THIS RN TRIED TO TAKE PT OFF OF OXYGEN AND PT SLOWLY DROPPED DOWN TO SPO2 OF HIGH 80 S/ NC REPLACED AT THAT TIME/PT GOT UP TO BSC AND O2 DROPPED TO HIGH 80% WITH 4L NC BUT QUICKLY RECOVED AT REST, SPO2 GREATER THAN 90% ON 2L O2 VIA NC / TITRATED DOWN THIS AFTERNOON FROM 4L O2 VIA NC, PT HAS CONGESTED COUGH THAT OCCAONIALLY IS PRODUCTIVE WITH THICK CARR SPUTUM. HR 90-110 S AT REST, HR ELEVATED TO 140 S WITH ACTIVITY BUT RETURNS TO 90-110 S AT REST, DENIES CHEST P/P T/O THIS SHIFT, RHYTHM AFIB. BANSAL CATH IS SECURE/PATENT/DRAINING TO GRAVITY, URINE YELLOW. PT ON REGULAR DIET/CBG ELEVATED REQUIRING INSULIN COVERAGE, PT REPORTING NAUSEA NO VOMITING. DR. BADILLO ROUNDED ON PT THIS AM, PLAN OF CARE ONGOING, NEW ORDERS PLACED. DR. CANTOR ROUNDED ON PT THIS AM, PT DENIES SI, POTENTIAL TO DC SITTER 08/28. REPORT GIVEN TO MEDICAL FLOOR RN PT TRANSFERRED TO ROOM 347 @ APPROX 1730
--- NOTE | 2024-08-27 17:55 | NUR ---
PT TRANSFERRED FROM PCU THIS AFTERNOON. SI PRECAUTIONS REMAIN WITH 1:1 SITTER. PT A&OX4, VSS, 2 L O2 VIA NC. NO COMPLAINTS OF PAIN OR NAUSEA. BANSAL IN PLACE WITH GOOD URINE OUTPUT. PT COOPERATIVE WITH CARE SINCE TRANSFER.
[2024-08-27 19:20] VITALS: BP 145/75
[2024-08-27] MEDS ORDERED: NS 250 ML IV PRN (20:45)
[2024-08-28 03:02] VITALS: BP 116/62
[2024-08-28 06:04] LABS: Hematocrit 35.4 % (37.0-53.0); Hemoglobin 11.3 g/dL (13.5-17.5); Mean Corpuscular HGB 28.6 pg (26.0-34.0); Mean Corpuscular HGB Conc 31.9 g/dL (31.5-36.5); Mean Corpuscular Volume 90 fL (80-100); Mean Platelet Volume 9.4 fL (9.1-12.4); Platelet Count 382 K/mm3 (150-400); RDW Coefficient Variation 14.1 % (11.7-14.2); RDW Standard Deviation 45.6 fL (35.1-46.3); Red Blood Cell Count 3.95 M/mm3 (4.30-5.90); White Blood Cell Count 8.61 K/mm3 (4.00-11.30)
[2024-08-28 06:27] LABS: Calcium, Blood 8.9 mg/dL (8.5-10.1); Creatinine, Blood 0.57 mg/dL (0.60-1.20); Potassium, Blood 4.1 mmol/L (3.5-5.5)
[2024-08-28 07:13] VITALS: BP 149/63
--- NOTE | 2024-08-28 07:15 | NUR ---
Shift Summary Pt states that he is no longer suicidal and would like to be taken off suicide precautions. I forwarded this information to dayshift. He c/o upset stomach and had 3 episodes of diahhrea last night. He believes it is from the IV ABX and refused his 0600 dose, education provided. No acute changes, AOX4, 1SBA to the BR, Mercer catheter in place.
[2024-08-28] MEDS ORDERED: Furosemide 10 MG / ML 2ML Vial IV SCH (09:00)
[2024-08-28] MEDS ORDERED: Apixaban 5 MG Tab PO SCH (09:00)
--- NOTE | 2024-08-28 13:03 | NUR ---
PT REFUSED LUNCH DUE TO HIGH BLOOD SUGAR. REQUESTED CBG BE RECHECKED IN 30 MIN. EDUCATION PROVIDED ON INSULIN COVERAGE BEFORE EATING. PT DECLINED LUNCH POST EDUCATION
--- NOTE | 2024-08-28 13:13 | NUR ---
DR. PEÑA AT BEDSIDE. PER MD WILL DISCONTINUE SUICIDE PRECAUTIONS AND CANCEL TRANSFER TO U
[2024-08-28 15:43] VITALS: BP 115/71
--- NOTE | 2024-08-28 16:51 | NUR ---
summary PT DECLINES DESIRE TO HURT HIMSELF. SITTER D/C AND SI PRECAUTIONS D/C. PT IS COOPERATIVE WITH STAFF, [employer] [place], ATTEMPTED TO WEAN DOWN O2 UNSUCESSFULLY. PT DYSPNIC WITH AMBULATION. ABLE TO MAKE NEEDS KNOWN. LOWER EXTREMETIES RED AND IRRITATED, REPORTS BURNING. MD AWARE. NO ACUTE CHANGES THIS SHIFT. ROLF HOWARD/
[2024-08-28 19:55] VITALS: BP 136/58
[2024-08-29 04:45] VITALS: BP 121/62
[2024-08-29 06:39] LABS: Hematocrit 33.5 % (37.0-53.0); Hemoglobin 10.6 g/dL (13.5-17.5)
[2024-08-29 06:58] LABS: Bun/Creatinine Ratio 27.3 (12.0-20.0); Calcium, Blood 8.8 mg/dL (8.5-10.1); Creatinine, Blood 0.55 mg/dL (0.60-1.20); Magnesium, Blood 2.2 mg/dL (1.6-2.4); Phosphorus, Blood 2.6 mg/dL (2.5-4.9)
[2024-08-29 07:08] VITALS: BP 136/55
--- NOTE | 2024-08-29 07:09 | NUR ---
SHIFT SUMMARY AT START OF SHIFT, PT SLEEPING IN BED. AT EVENING MED PASS, PT SEEMED PARANOID THAT STAFF WERE GIVING HIM THINGS I DON T NEED. YOU GUYS ARE GIVING ME DOUBLE DOSES. THIS RN ASSURED HIM, HE IS NOT RECEIVING MORE THAN WHAT IS PRESCRIBED TO HIM. PT TOOK MEDICATIONS AND IS RESTING PEACEFULLY IN HIS BED.
--- NOTE | 2024-08-29 14:47 | NUR ---
SUPPORTIVE VISIT PT IS A/O X4. POLITE AND ACCEPTING OF THIS PC RN'S VISIT. HE REPORTS WORKING WITH PHYSICAL TX TODAY AND IS FEELING HOPEFULL TO REGAIN STRENGTH AND STAMINA. DANIEL IS LOOKING FORWARD TO D/C TO SNF. HE PLANS ON FOLLOWING UP WITH ONCOLOGY AFTER DISCHARGE. PC TO REMAIN AVAILABLE NEEDED.
[2024-08-29 16:19] VITALS: BP 131/70
--- NOTE | 2024-08-29 16:22 | NUR ---
SUMMARY NO ACUTE CHANGES THIS SHIFT. PT CONTINUES TO DENY DESIRE TO HURT HIMSELF. ABLE TO MAKE NEEDS KNOWN. 3L NC
[2024-08-29 19:32] VITALS: BP 147/85
[2024-08-29] MEDS ORDERED: Insulin Glargine-Yfgn 100 Unit/mL 3 ML SYR SC SCH (21:00)
[2024-08-30 04:48] VITALS: BP 105/70
[2024-08-30 05:54] LABS: Hematocrit 34.3 % (37.0-53.0); Hemoglobin 10.9 g/dL (13.5-17.5)
[2024-08-30 06:12] LABS: Bun/Creatinine Ratio 22.5 (12.0-20.0); Calcium, Blood 9.1 mg/dL (8.5-10.1); Creatinine, Blood 0.58 mg/dL (0.60-1.20); Magnesium, Blood 2.2 mg/dL (1.6-2.4)
[2024-08-30 07:23] VITALS: BP 126/69
--- NOTE | 2024-08-30 07:38 | NUR ---
SHIFT SUMMARY PT HAS BEEN DIFFICULT AND UNCOOPERATIVE WITH HIS CARE THIS SHIFT. HE BEGAN SHOUTING AND SWEARING AFTER BEING OFFERED HIS MEDICATIONS. WHEN TONE REGULATOR PERFORMED CATH CARE, PT SAID TO HER DON T GO FAST. GO SLOWER, SO I CAN SLEEP, AND I THINK I NEED A WOMAN. TONE REGULATOR EXPRESSED CONCERN. PT INFORMED HE MAY NOT BE INAPPROPRIATE WITH STAFF. PT ASKED FOR HIS MEDICATION AND SOME HOT COFFEE.
--- NOTE | 2024-08-30 07:47 | NUR ---
PATIENT'S BLOOD GLUCOSE THIS MORNING WAS 48. PIT FURNACE MELTER NOTIFIED. PATIENT DRANK 8 OZ ORANGE JUICE RIGHT AWAY. PATIENT IS AWAKE AND ORIENTED AT THIS TIME. WILL RECHECK BG PER PROTOCOL.
[2024-08-30 08:46] VITALS: BP 136/88
--- NOTE | 2024-08-30 15:33 | NUR ---
"Spiritual Care Visit | Pt. Request Pt. is sitting up on the side of bed when he welcomes my visit. Pt. is pleasant, and displays evidence of being stronger than the previous week. Pt. is unsettled by complications in his possible discharge. Listen with empathy and a calming presence. Further life review exposes some of the stress the Pt. experiences with life complications of his spouse. With pastoral care and theraputic listening the Pt. displayed evidence of wanting to change. Considered matters of ambrose and belief of which the Pt. verbalized he wanted to embrace. Prayed with Pt. Pt. verbalized gratitude for the spiritual care visit."
[2024-08-30 16:25] VITALS: BP 142/86
--- NOTE | 2024-08-30 16:39 | NUR ---
PATIENT IS ALERT AND ORIENTED AND COOPERATIVE WITH CARE. HE DOES TALK TO HIMSELF AT TIMES AND CAN BECOME AGITATED. ON 3.5L O2 VIA NC. COARSE WHEEZY LS. ENCOURAGED TO USE IS AND FLUTTER VALVE. ROLF VAZQUEZ TODAY. PATIENT IS IND TO THE BATHROOM. UP TO CHAIR. USES FWW. PATIENT STATES HIS HAS DEMENTIA AND HER SISTER IS LOOKING IN ON HER AT THEIR HOME IN [place]. THE PT'S BG WAS 48 THIS MORNING, HE RESPONDED WELL TO 8 OZ OF OJ WHICH INCREASED HIS BG TO 87 BEFORE BREAKFAST. NO C/O PAIN. REFUSED GABAPENTIN. BM THIS AM. WILL CONTINUE TO MONITOR
[2024-08-30 20:23] VITALS: BP 133/59
[2024-08-31 03:00] VITALS: BP 134/64
--- NOTE | 2024-08-31 03:13 | NUR ---
PT C/O BEING UNABLE TO VOID. BANSAL D/C'D DAY SHIFT AND PT VOING PRIOR TO GOING TO SLEEP, BUT AWOKE AND UNABLE TO VOID. BLADDER SCAN SHOWED 400ML. THIS RN EDUCATED PT ON STRAIGHT CATH FOR RETENTION, AND PT STATED, "YOU WILL HAVE TO PUT ME OUT IF YOU WANT TO PUT THAT TUBE IN AND THEN TAKE IT BACK OUT". DR VALADEZ NOTIFIED AND ORDER RECEIVED FOR UROJET. PT AGREES TO UROJET BEFORE STRAIGHT CATH.
[2024-08-31] MEDS ORDERED: Lidocaine 2% Jelly Uro-Jet UR PRN (03:20)
--- NOTE | 2024-08-31 05:39 | NUR ---
SHIFT SUMMARY PT A&O X4. OCCASSIONAL PRODUCTIVE COUGH, INCREASING THIS AM. PT DENIES SHORTNESS OF BREATH. AMBULATES TO BATHROOM WITH SBA. PT WITH DIFFICULTY URINATING DURING THE NIGHT- BANSAL HAD BEEN D/C'D EARLIER IN THE DAY. STRAIGHT CATH X1 FOR POST VOID RESIDUAL OF 414 ML. PT ABLE TO URINATE AFTER, STATING AFTER SOME DIFFICULTY STARTING THE STREAM, HE FELT THAT HE EMPTIED HIS BLADDER. BED IN LOWEST POSITION, CALL LIGHT WITHIN REACH, SIDE RAILS UP X3.
[2024-08-31 07:25] LABS: Hematocrit 35.6 % (37.0-53.0); Hemoglobin 11.3 g/dL (13.5-17.5)
[2024-08-31 07:31] VITALS: BP 149/87
[2024-08-31 07:49] LABS: Bun/Creatinine Ratio 23.4 (12.0-20.0); Calcium, Blood 9.2 mg/dL (8.5-10.1); Creatinine, Blood 0.56 mg/dL (0.60-1.20); Potassium, Blood 4.2 mmol/L (3.5-5.5)
[2024-08-31] MEDS ORDERED: Insulin Glargine-Yfgn 100 Unit/mL 3 ML SYR SC SCH (09:00)
[2024-08-31] MEDS ORDERED: Tamsulosin HCl 0.4 MG Cap PO SCH (09:55)
[2024-08-31] MEDS ORDERED: Ipratropium/Albuterol SulF 2.5-0.5MG/3 ML Amp INH SCH ×2 (11:50→14:45)
[2024-08-31] MEDS ORDERED: PredniSONE 20 MG Tab PO SCH (12:00)
[2024-08-31 13:43] LABS: Adenovirus Not Detected (NOT DETECT); Bordetella pertussis Not Detected (NOT DETECT); Chlamydophila pneumoniae Not Detected (NOT DETECT); Coronavirus 229E Not Detected (NOT DETECT); Coronavirus HKU1 Not Detected (NOT DETECT); Coronavirus NL63 Not Detected (NOT DETECT); Coronavirus OC43 Not Detected (NOT DETECT); Human Metapneumovirus Not Detected (NOT DETECT); Human Rhinovirus/Enterovirus Not Detected (NOT DETECT); Influenza A/2009-H1 Not Detected (NOT DETECT); Influenza A/H1 Not Detected (NOT DETECT); Influenza A/H3 Not Detected (NOT DETECT); Influenza B Not Detected (NOT DETECT); Mycoplasma pneumoniae Not Detected (NOT DETECT); Parainfluenza Virus 1 Not Detected (NOT DETECT); Parainfluenza Virus 2 Not Detected (NOT DETECT); Parainfluenza Virus 3 Not Detected (NOT DETECT); Parainfluenza Virus 4 Not Detected (NOT DETECT); Respiratory Syncytial Virus Not Detected (NOT DETECT); SARS-Cov-2 (COVID-19), BioFire Detected (NOT DETECT)
[2024-08-31] MEDS ORDERED: Remdesivir (EUA) 200 MG in NS 250 ML IV ONE (14:50)
[2024-08-31 15:50] VITALS: BP 105/68
--- NOTE | 2024-08-31 16:02 | NUR ---
RN NOTIFIED DR. BADILLO OF BLADDER SCAN AMOUNT OF 581 ML. SHE ORDERED THAT I WAIT 2 HOURS TO SEE IF THE PATIENT IS ABLE TO VOID ON HIS OWN. IF HE IS STILL RETAINING AT 1800, TO CALL HER BACK AND POTENTIALLY PLACE A BANSAL OR STRAIGHT CATH AT THAT TIME.
--- NOTE | 2024-08-31 16:23 | NUR ---
PATIENT IS ALERT AND ORIENTED WITH SOME FORGETFULNESS. HE CAN BECOME AGITATED AT TIMES. PT C/O INCREASED COUGHING FREQUENCY AND MALAISE. PATIENT C/O BLADDER DISCOMFORT. BLADDER SCANNED MULTIPLE TIMES THIS SHIFT, DR. BADILLO IS AWARE OF EVERY RESULT. PLAN IS TO BLADDER SCAN AT 1800 AND REASSESS THE NEED FOR A CATHETER AT THAT TIME. TESTED POSITIVE FOR COVID THIS AFTERNOON. ON 3.5L O2 VIA NC. WILL CONTINUE TO MONITOR
[2024-08-31 19:46] VITALS: BP 97/50
[2024-08-31 20:11] VITALS: BP 125/72
[2024-09-01 01:58] VITALS: BP 116/57
--- NOTE | 2024-09-01 05:25 | NUR ---
SHIFT SUMMARY PT A&O X4, COOPERATIVE WITH CARE, BUT INTERMITTENTLY IRRITABLE. PT WITH DIFFICULTY VOIDING BEFORE HS, BUT WAS ABLE TO VOID WITHOUT DIFFICULTY AT 0330. PT DENIES BLADDER DISCOMFORT. ISO FOR COVID CONTINUES. PT WITH OCCASSIONAL COUGH WITH THICK WHITE SPUTUM. O2 INCREASED FROM 3 TO 4 LITERS AT BEGINNING OF SHIFT FOR O2 SATS IN THE MID 80'S. BED IN LOWEST POSITION, CALL LIGHT WITHIN REACH, SIDE RAILS UP X3.
[2024-09-01 06:31] LABS: Hematocrit 32.2 % (37.0-53.0); Hemoglobin 10.3 g/dL (13.5-17.5)
[2024-09-01 06:58] LABS: Bun/Creatinine Ratio 28.2 (12.0-20.0); Calcium, Blood 9.1 mg/dL (8.5-10.1); Creatinine, Blood 0.6 mg/dL (0.60-1.20); Potassium, Blood 4.1 mmol/L (3.5-5.5)
[2024-09-01 08:02] VITALS: BP 118/61
[2024-09-01] MEDS ORDERED: Insulin Glargine-Yfgn 100 Unit/mL 3 ML SYR SC SCH (09:00)
[2024-09-01] MEDS ORDERED: Remdesivir (EUA) 100 MG in NS 250 ML IV SCH (12:00)
[2024-09-01 15:12] VITALS: BP 125/59
--- NOTE | 2024-09-01 15:31 | NUR ---
SHIFT SUMMARY PT AWAKE AT START OF SHIFT, SITTING UP TO EOB. PT VERY UNPLEASANT AND IRRITABLE ALL DAY. PT RUDE AND DEMANDING TO DR BADILLO THIS AM WELL. INDEPENDENT TO BTHRM AND SOMETIMES BSC NEEDED. PT REMAINS ON 4L O2 VIA N/C. CURRENT SMOKER WITH LUNG CA; NO TX STARTED YET. BL PNM WITH R PLEURAL EFFUSION. SITING UP TO EOB MOST OF THE DAY. INDEPENDENT IN RM. ABLE TO MAKE NEEDS KNOWN. CALL LT IN REACH.
[2024-09-01 21:15] VITALS: BP 139/78
[2024-09-02 03:30] VITALS: BP 135/78
--- NOTE | 2024-09-02 05:16 | NUR ---
SHIFT SUMMARY PT A&O X4. MOSTLY COOPERATIVE WITH CARE, IRRITABLE AT TIMES. STATES HE IS URINATING WITH A STRONG STREAM. RE-ENFORCED WITH PT THAT THIS IS THE DESIRED EFFECT OF THE FLOMAX. UP INDEPENDENTLY IN ROOM. O2 WITH 3LNC. DENIES SOB. OCC PRODUCTIVE COUGH WITH THICK WHITE SPUTUM. BED IN LOWEST POSITION, CALL LIGHT WITHIN REACH, SIDE RAILS UP X3.
[2024-09-02 05:49] LABS: BASOPHILS ABSOLUTE AUTO 0.01 K/mm3 (0.00-0.23); BASOPHILS PERCENT AUTO 0 % (0-2); EOSINOPHILS ABSOLUTE AUTO 0.01 K/mm3 (0.00-0.68); EOSINOPHILS PERCENT AUTO 0 % (0-6); Hematocrit 33.7 % (37.0-53.0); Hemoglobin 10.6 g/dL (13.5-17.5); IMMATURE GRAN ABSOLUTE AUTO 0.03 K/mm3 (0.00-0.10); IMMATURE GRAN PERCENT AUTO 1 % (0-1); LYMPHOCYTES ABSOLUTE AUTO 1.44 K/mm3 (0.84-5.20); LYMPHOCYTES PERCENT AUTO 27 % (21-46); MONOCYTES ABSOLUTE AUTO 0.57 K/mm3 (0.16-1.47); MONOCYTES PERCENT AUTO 11 % (4-13); Mean Corpuscular HGB 28.3 pg (26.0-34.0); Mean Corpuscular HGB Conc 31.5 g/dL (31.5-36.5); Mean Corpuscular Volume 90 fL (80-100); Mean Platelet Volume 9.5 fL (9.1-12.4); NEUTROPHILS PERCENT AUTO 62 % (41-73); Platelet Count 483 K/mm3 (150-400); RDW Coefficient Variation 14.3 % (11.7-14.2); RDW Standard Deviation 47.4 fL (35.1-46.3); Red Blood Cell Count 3.74 M/mm3 (4.30-5.90); White Blood Cell Count 5.36 K/mm3 (4.00-11.30)
[2024-09-02 06:15] LABS: Magnesium, Blood 2.1 mg/dL (1.6-2.4)
[2024-09-02 06:16] LABS: Bun/Creatinine Ratio 26.9 (12.0-20.0); Creatinine, Blood 0.6 mg/dL (0.60-1.20); Phosphorus, Blood 2.6 mg/dL (2.5-4.9); Potassium, Blood 4.1 mmol/L (3.5-5.5)
[2024-09-02 07:35] VITALS: BP 106/70
[2024-09-02] MEDS ORDERED: Furosemide 40 MG Tab PO SCH (15:00)
[2024-09-02 17:00] VITALS: BP 128/91
--- NOTE | 2024-09-02 17:04 | NUR ---
SHIFT SUMMARY: PT AOX4 AGITATED AND NOT PLEASANT. REFUSES CERTAIN MEDICATIONS AND TAKES OTHERS ALMOST RANDOMLY. PLAN IS TO DISCHARGE TOMORROW MORNING. PRODUCTIVE COUGH BUT IND IN ROOM. TOLERATING MEDICATION WELL. O2 EVAL DONE AND PT WAS COOPERATIVE AND ABLE TO WALK AROUND. PT RESTING IN BED, CALL LIGHT IN REACH, BED IN LOWEST POSITION. CONTINUIING CARE.
--- NOTE | 2024-09-02 17:30 | NUR ---
THIS ENGINEERING JOB TITLES HAS REVIEWED AND AGREES WITH ALL NOTES AND ASSESSMENTS BY TREMAYNE CRAWFORD.
[2024-09-02 20:05] VITALS: BP 111/68
[2024-09-02] MEDS ORDERED: Losartan Potassium 25 MG Tab PO SCH (21:00)
[2024-09-03 04:25] VITALS: BP 120/78
--- NOTE | 2024-09-03 05:21 | NUR ---
NOS SUMMARY- PT HAD NO NEW ISSUES. PT DID EXPERIENCE SOME HALLUCINATIONS LATE IN THE SHIFT. PT HAS BEEN PLESANT AND COOPERATIVE. PT DENIES INCREASED SOB. PT HAS BEEN VOIDING WITHOUT ISSUE. PT AMBULATING WITH FWW WELL. PT HAS SLEPT FOR SEVERAL HOURS COMFORTABLY. PT CURRENTLY RESTING QUIETLY. CALL LIGHT IN REACH.
[2024-09-03 06:44] LABS: Anion Gap 9 mmol/L (3-11); Blood Urea Nitrogen 17 mg/dL (8-24); Bun/Creatinine Ratio 34.6 (12.0-20.0); CO2, Blood 34 mmol/L (21-32); Calcium, Blood 8.8 mg/dL (8.5-10.1); Chloride, Blood 97 mmol/L (98-108); Creatinine, Blood 0.49 mg/dL (0.60-1.20); Digoxin (Lanoxin) 0.76 ug/mL (0.80-2.00); Glomerular Filtration Rate 109 (60-); Glucose, Blood 252 mg/dL (70-99); Potassium, Blood 3.5 mmol/L (3.5-5.5); Sodium, Blood 136 mmol/L (136-145)
[2024-09-03 07:05] VITALS: BP 130/94
[2024-09-03] MEDS ORDERED: Insulin Glargine-Yfgn 100 Unit/mL 3 ML SYR SC SCH (09:00)
[2024-09-03] MEDS ORDERED: DIGOX250 MCG PO (10:38)
[2024-09-03] MEDS ORDERED: ELIQUIS5 M2 PO (10:38)
[2024-09-03] MEDS ORDERED: GABA100 PO (10:39)
[2024-09-03] MEDS ORDERED: HUMALOG KW200 UNIT/2 SC (10:43)
[2024-09-03] MEDS ORDERED: IPRAT-ALBUT 0.5-3 ML INH (10:46)
[2024-09-03] MEDS ORDERED: LOSA25 PO (10:47)
[2024-09-03] MEDS ORDERED: Methocarbamol500 MG PO (10:50)
[2024-09-03] MEDS ORDERED: POTA10T PO (10:54)
[2024-09-03] MEDS ORDERED: Promod946 ML PO (10:55)
[2024-09-03] MEDS ORDERED: Prednisone20 MG PO (10:55)
[2024-09-03] MEDS ORDERED: QUETIAPINE FUMA50 M2 PO (10:56)
[2024-09-03] MEDS ORDERED: QUET25 PO (10:56)
[2024-09-03] MEDS ORDERED: TAMSULOSIN HCL0.4 MG PO (10:57)
[2024-09-03] MEDS ORDERED: Crestor40 MG PO (10:57)
[2024-09-03] MEDS ORDERED: ALBU8HFA2 INH (12:06)
== END 2024-09-03 14:30 | disposition home health service (06) | DRG 180 ==
LOC: ER 12:06 → PCU 15:28 → MEDS 15:28 → PCU 16:47 → MEDS 08-27 16:19
PROVIDERS: Emergency Medicine; Hospitalist; Internal Medicine; ADMIT Internal Medicine
PROC: 0W993ZZ Drainage of Right Pleural Cavity, Percutaneous Approach (ICD-10-PCS; principal; 2024-08-22)
PROC: XW033E5 Introduction of Remdesivir Anti-infective into Peripheral Vein, Percutaneous Approach, New Technology Group 5 (ICD-10-PCS; 2024-09-01)
DX: C34.11 Malignant neoplasm of upper lobe, right bronchus or lung (principal); I50.23 Acute on chronic systolic (congestive) heart failure; J15.69 Pneumonia due to other Gram-negative bacteria; J96.01 Acute respiratory failure with hypoxia; U07.1 COVID-19; I48.21 Permanent atrial fibrillation; J91.8 Pleural effusion in other conditions classified elsewhere; C78.1 Secondary malignant neoplasm of mediastinum; E44.0 Moderate protein-calorie malnutrition; J44.0 Chronic obstructive pulmonary disease with (acute) lower respiratory infection; F33.3 Major depressive disorder, recurrent, severe with psychotic symptoms; Z68.1 Body mass index [BMI] 19.9 or less, adult; H40.9 Unspecified glaucoma; E11.40 Type 2 diabetes mellitus with diabetic neuropathy, unspecified; N40.1 Benign prostatic hyperplasia with lower urinary tract symptoms; Z66 Do not resuscitate; I87.2 Venous insufficiency (chronic) (peripheral); Z99.81 Dependence on supplemental oxygen; Z88.1 Allergy status to other antibiotic agents; Z88.0 Allergy status to penicillin; Z88.8 Allergy status to other drugs, medicaments and biological substances; Z79.4 Long term (current) use of insulin; Z79.84 Long term (current) use of oral hypoglycemic drugs; Z79.01 Long term (current) use of anticoagulants; Z87.891 Personal history of nicotine dependence
CPT/HCPCS: 0202U; 32555; 36415; 51702; 70470; 71045; 71260; 74177; 80048; 80053; 80162; 82803; 82947; 83735; 83880; 84100; 84484; 85014; 85018; 85025; 85027; 85610; 93005; 93010; 93922; 94640; 94664; 94760; 94761; 94762; 96374; 96375; 96376; 97116; 97162; 97165; 97530; 97535; 99285-25; A9270; J0248; J0456; J0692; J0696; J1160; J1650; J1815; J1940; J7050; J7060; J7512; Q9967